=== PATIENT | male | born 1950 | race Caucasian/White ===

== ENCOUNTER → 2020-05-17 | Outpatient (CLI) | payer MEDICARE, OTHER ==
[~2020-05-17] MED LIST: [UNRECOGNIZED DRUG - OTHER]
== END | disposition home or self-care (01) ==
LOC: PLD 11:59 → LAB SHORT 11:59
DX: C44.519 Basal cell carcinoma of skin of other part of trunk (principal); C44.219 Basal cell carcinoma of skin of left ear and external auricular canal; C44.41 Basal cell carcinoma of skin of scalp and neck; D04.5 Carcinoma in situ of skin of trunk; D22.5 Melanocytic nevi of trunk
CPT/HCPCS: 88305

== ENCOUNTER → 2020-06-13 | Outpatient (CLI) | payer MEDICARE | LOC: PLD 12:37 → LAB SHORT 12:37 | DX: D22.5 Melanocytic nevi of trunk (principal) | CPT/HCPCS: 88305 ==

== ENCOUNTER → 2020-08-02 | Outpatient (CLI) | payer MEDICARE | LOC: PLD 12:26 → LAB SHORT 12:26 | DX: C44.519 Basal cell carcinoma of skin of other part of trunk (principal) | CPT/HCPCS: 88305 ==

== ENCOUNTER → 2020-10-27 | Outpatient (CLI) | payer MEDICARE, OTHER ==
[2020-10-27 13:59] LABS: Source, Urine Clean Catch
[2020-10-27 14:55] LABS: Appearance, Urine Clear (Clear); Bilirubin, Urine Neg (Neg); Blood, Urine Neg (Neg); Color, Urine Yellow (P-Yellow); Glucose Qualitative, Urine Neg (Neg); Ketones, Urine Neg (Neg); Leukocyte Esterase, Urine Neg (Neg); Nitrite, Urine Neg (Neg); Protein, Urine Neg (Neg); Specific Gravity, Urine 1.025 (1.003-1.022); Urobilinogen, Urine NORM (Normal)
== END | disposition home or self-care (01) ==
LOC: LAB SHORT 13:55 → PLD 13:55
PROVIDERS: Internal Medicine
DX: R31.29 Other microscopic hematuria (principal)
CPT/HCPCS: 81003; 88108

== ENCOUNTER 2022-05-09 19:50 | Inpatient (IN) | payer MEDICARE ==
[~2022-05-09] VITALS: Ht 182.9 cm; Wt 96.6 kg
[2022-05-09] MEDS ORDERED: XARELTO20 M1 PO (20:43)
--- NOTE | 2022-05-10 04:26 | NUR ---
SHIFT SUMMARY PATIENT IS ALERT AND ORIENTED. PATIENT IS A RECENT ADMIT FOR COVID. PATIENT IS IND IN ROOM. PATIENT HAS A NEW CHF DIAGNOSIS. ELEVATED BNP. PATIENT IS PLEASENT AND COOPERATIVE WITH CARE. PATIENT IS ON 2L NASAL CANNULA, ROOM AIR AT BASELINE. PATIENT HAS HAD NO COMPLAINTS OF PAIN, NAUSEA, VOMITTING, OR SOB THIS SHIFT. BED IN LOCKED AND LOWEST POSITION. CALL LIGHT IN PLACE. WILL MONITOR UNTIL SHIFT CHANGE.
--- NOTE | 2022-05-10 18:01 | NUR ---
SHIFT SUMMARY PT A&O X 4. INDEPENDENT IN THE ROOM. ECHO DONE TODAY.
--- NOTE | 2022-05-11 03:38 | NUR ---
SHIFT SUMMARY: NO ACUTE CHANGES THROUGHOUT THE NIGHT. PT REMAINS A/OX4, ADLIB IN ROOM AND INDPENDENT WITH ADL'S. PT REPORTS NO RESPIRATORY DISCOMFORT AND SIGNIFICANT IMPROVEMENT WITH SHORTNESS OF BREATH AND FEELING OVERALL BETTER THAN WHEN ADMITTED. NO REPORTS OF PAIN, SHOB, OR DIZZINESS. BED IN LOW POSITION, CALL ROSS AND BELONGINGS IN REACH, PT CONTINUES TO CALL APPROPRIATELY.
[2022-05-11 05:50] LABS: Calcium, Blood 9.3 mg/dL (8.5-10.1); Creatinine, Blood 0.88 mg/dL (0.60-1.20)
--- NOTE | 2022-05-11 16:41 | NUR ---
SHIFT SUMMARY A&O X 4. VSS. DENIES CP. INDEPENDENT IN THE ROOM FOR RESTROOM USE. IS IN COVID ISO. NO COMPLAINTS OF PAIN. IS ON 2 L's O2 VIA N/C SATTING >95%. ON TELE NSR HR 79.
--- NOTE | 2022-05-12 02:09 | NUR ---
SHIFT SUMMARY:A/OX4, ADLIB AMBULATION AND INDEPENDENT WITH ADL'S. NO COMPLAINTS OF PAIN THROUGHOUT THE NIGHT. PT REMAINS ON 2L O2 NASAL CANNULA DUE TO SHORTNESS OF BREATH WITH AMBULATION. AT THIS TIME NO NEW CARDIAC EVENTS REPORTED FROM [employer] MONITORING. PATIENT CALLS APPROPRIATELY, BED IN LOW POSITION, CALL ROSS AND BELONGINGS IN REACH.
[2022-05-12 06:17] LABS: Alanine Aminotransfer (ALT/SGP 58 U/L (12-78); Albumin, Blood 3.3 g/dL (3.4-5.0); Albumin/Globulin Ratio 0.9 (0.8-1.8); Alk Phos 56 U/L (50-136); Anion Gap 8 mmol/L (6-16); Aspartate Aminotrans (AST/SGOT 32 U/L (12-37); Bilirubin, Total 0.4 mg/dL (0.1-1.0); Blood Urea Nitrogen 35 mg/dL (8-24); Bun/Creatinine Ratio 36.6 (12.0-20.0); CHOL/HDL RATIO 2.7; CO2, Blood 30 mmol/L (21-32); Calcium, Blood 9.5 mg/dL (8.5-10.1); Chloride, Blood 99 mmol/L (98-108); Cholesterol 101 mg/dL (50-200); Creatinine, Blood 0.96 mg/dL (0.60-1.20); Globulin, Blood 3.7 g/dL (2.2-4.0); Glomerular Filtration Rate 84 (60-); Glucose, Blood 122 mg/dL (70-99); HDL Cholesterol 38 mg/dL (>39); LDL/HDL RATIO 1.1; Low Density Lipoprotein Chol 43 mg/dL (0-110); Potassium, Blood 4.1 mmol/L (3.5-5.5); Sodium, Blood 137 mmol/L (136-145); Triglycerides 101 mg/dL (30-160); Very Low Density Lipoprot Chol 20 mg/dL (6-32)
--- NOTE | 2022-05-12 19:06 | NUR ---
SHIFT SUMMARY 71-YEAR-OLD MALE, INDEPENDENT, A&O X4. FULL CODE. DROPLET PRECAUTIONS IN PLACE. 2L O2 FOR SOB. VTACH REPORTED TWICE TODAY WITH NO CHEST PAIN OR DISCOMFORT. STRICT I&O'S. CONTINUE TO MONITOR.
--- NOTE | 2022-05-13 05:32 | NUR ---
SHIFT SUMMARY 71 YR M ADMITTED ON 05/10/22 FOR ARF/COVID. FULL CODE. NO ACUTE CHANGES THIS SHIFT. PER VP SALES PT HAD ONE SHORT RUN OF VTAC AT BEGINNING OF SHIFT WHILE HE WAS USING THE BATHROOM. THIS NURSE WAS WITH HIM AT THE TIME AND HE WAS ASYMPTOMATIC. NO OTHER ISSUES REPORTED FOR REST OF SHIFT. PT HAD NO C/O SOB, CHEST PAIN, OR N/V. HE IS INDEPENDANT IN THE ROOM AND IS PLEASANT AND COOPERATIVE.
[2022-05-13 11:08] LABS: Bun/Creatinine Ratio 34.5 (12.0-20.0); Calcium, Blood 9.5 mg/dL (8.5-10.1); Creatinine, Blood 0.93 mg/dL (0.60-1.20); Potassium, Blood 3.5 mmol/L (3.5-5.5)
[2022-05-13] MEDS ORDERED: METO25ER PO (14:39)
[2022-05-13] MEDS ORDERED: SOAANZ20 M1 PO (14:40)
--- NOTE | 2022-05-13 17:28 | NUR ---
SHIFT SUMMARY PTN PLEASANT 71-YEAR-OLD MALE, A&O X4, FULL CODE. PTN DC'D TODAY AFTER DC PAPERWORK REVIEWED TO INCLUDE FOLLOW-UP CARE AND MEDICATION MGT. PTN VOICED UNDERSTANDING TO FOLLOW UP WITH PCP IN 1 WEEK, AND TO GET REFERRAL FROM PCP FOR CARDIOLOGY REFERRAL OUTPATIENT. PTN TAKEN OUT VIA WC BY [employer] WHERE HIS SISTER WAS TO MEET HIM FOR TRANSPORT HOME. MEDICATIONS WERE FAXED TO PHARMACY.
== END 2022-05-13 16:49 | disposition home or self-care (01) | DRG 177 ==
LOC: ER 19:50 → MEDS 05-10 01:13 → ENPENDDIS 05-13 13:46 → MEDS 05-13 16:49
PROVIDERS: Hospitalist; Student in an Organized Health Care Education/Training Program; ADMIT Internal Medicine
PROC: 3E0333Z Introduction of Anti-inflammatory into Peripheral Vein, Percutaneous Approach (ICD-10-PCS; principal; 2022-05-10)
PROC: 3E0DX3Z Introduction of Anti-inflammatory into Mouth and Pharynx, External Approach (ICD-10-PCS; 2022-05-10)
PROC: XW033E5 Introduction of Remdesivir Anti-infective into Peripheral Vein, Percutaneous Approach, New Technology Group 5 (ICD-10-PCS; 2022-05-10)
DX: U07.1 COVID-19 (principal); I50.21 Acute systolic (congestive) heart failure; J96.01 Acute respiratory failure with hypoxia; I11.0 Hypertensive heart disease with heart failure; Z86.718 Personal history of other venous thrombosis and embolism; Z87.891 Personal history of nicotine dependence; Z98.890 Other specified postprocedural states; Z88.0 Allergy status to penicillin; Z79.01 Long term (current) use of anticoagulants
CPT/HCPCS: 36415; 71045; 80048; 80053; 80061; 83735; 84484; 93005; 93010; 93306; 96374; 96375; 99285-25; A9270; J0248; J1100; J1940; J7050

== ENCOUNTER 2023-10-22 11:13 | Day surgery (SDC) | payer OTHER ==
[2023-10-22] VITALS (9 sets, daily range): BP systolic 92–118; BP diastolic 66–86
[~2023-10-22] VITALS: Ht 182.9 cm; Wt 101.0 kg
[~2023-10-22 11:13] MED LIST changes: +METO25ER PO; +SOAANZ20 M1 PO; +XARELTO20 M1 PO
[2023-10-22] MEDS ORDERED: NS 1,000 ML IV ONE (12:55)
[2023-10-22] MEDS ORDERED: JARDIANCE10 MG PO (13:11)
[2023-10-22] MEDS ORDERED: ENTRESTO 24 MG1 EACH PO (13:11)
[2023-10-22] MEDS ORDERED: SPIR25 PO (13:12)
[2023-10-22] MEDS ORDERED: ROSU10TA PO (13:12)
[2023-10-22] MEDS ORDERED: Amiodarone HCl 200 MG Tab PO ONE (14:25)
--- NOTE | 2023-10-22 14:50 | NUR ---
IV DC'D, CATH INTACT. PT GIVEN DC INSTRUCTIONS AND FOLLOW UP INFO, VERBALIZED UNDERSTANDING. DENIES ANY C/O AT TIME OF DISCHARGE. OUT TO CAR VIA WHEELCHAIR, ACCOMPANIED BY BROTHER AND SISTER IN LAW.
[2023-10-22] MEDS ORDERED: Propofol 10mg/ml 20 ml Vial (Procedural) IV ONE (15:47)
== END 2023-10-22 22:56 | disposition home or self-care (01) ==
LOC: MHTC 11:13
DX: I48.0 Paroxysmal atrial fibrillation (principal)
CPT/HCPCS: 92960; 93005; 93010; A9270; J2704; J7030